=== PATIENT | female | born 1950 | race Caucasian/White ===

== ENCOUNTER → 2017-10-22 | Outpatient (CLI) | payer OTHER | LOC: FIMAGING 07:46 | PROVIDERS: ATTEND Radiology Diagnostic Radiology | DX: I83.812 Varicose veins of left lower extremity with pain (principal) ==

== ENCOUNTER 2017-11-13 07:27 | Day surgery (SDC) | payer OTHER ==
[~2017-11-13 07:27] MED LIST: FLUMAZENIL 0.5 MG/5 ML MDV IVP PRN; MIDAZOLAM 2 MG/2 ML VIAL IVP PRN; NALOXONE HCL 0.4 MG/ML INJ IVP PRN; NS 1,000 ML IV ONE; ONDANSETRON 4 MG/2 ML VIAL IVP ONE; ceFAZolin 2 GM/DEXTROSE 100 ML IV ONE; fentaNYL 100 MCG/2 ML INJ IVP PRN
[2017-11-13] MEDS ORDERED: LIDOCAINE 1% 300 MG/30 ML SDV ONE (07:42)
[2017-11-13] MEDS ORDERED: SODIUM TETRADECYL SULFATE 3% 2 ML VIAL IV ONE (07:43)
[2017-11-13] MEDS ORDERED: LIDO/EPI 1% **for epidural** 30 ML SDV ONE ×2 (07:43→07:44)
--- NOTE | 2017-11-13 09:38 | PDGENHP ---
History & Physical Chief Complaint: LLE VARICOSE VEINS Pertinent Past, Social, Family History: PAIN AND SWELLING Relevant Physical Exam: ROPEY VARICOSE VEINS POSTERIOR LT CALF Cardiorespiratory Assessment: RRR, CTA
--- NOTE | 2017-11-13 09:38 | PDPROPOC ---
Sedation Plan of Care Sedation Plan of Care: vital signs stable, mental status noted, patient educated of risks, benefits, alternatives, patient can tolerate sedation ASA Classification: ASA 2 Planned drugs: fentanyl, midazolam Mallampati Score: Class 2 Mallampati Reference Image: Patient passed 3-3-2 rule?: Yes
[2017-11-13] MEDS ORDERED: IBUPROFEN 200 MG TAB PO ONE (10:52)
[2017-11-13] MEDS ORDERED: ONDANSETRON DISINTEGRATING 4 MG TAB PO PRN (10:52)
[2017-11-13] MEDS ORDERED: HYDROCODONE/APAP 5/325 TAB PO PRN (10:52)
[2017-11-13] MEDS ORDERED: ONDANSETRON 4 MG/2 ML VIAL IVP PRN (10:52)
--- NOTE | 2017-11-13 10:55 | PDRADPN ---
Radiology Procedure Note Date of Procedure: 11/13/17 Radiologist: Nery Barraza Anesthesia: IV Sedation Pre-op Diagnosis: LLE VARICOSE VEINS Post-op Diagnosis: SAME Indication: LLE SWELLING AND PAIN Procedure: LSV LASER, PHLEBECTOMY, SCLEROTHERAPY Finding(s): SEE REPORT Inf/Abcess present in the surg proc area at time of surgery?: No
[2017-11-13] MEDS ORDERED: NS 1,000 ML IV SCH (11:00)
[2017-11-13 13:45] VITALS: BP 118/81
[2017-11-13] MEDS ORDERED: ONDANSETRON DISINTEGRATING 4 MG TAB ONE (14:17)
== END 2017-11-13 14:21 | disposition home or self-care (01) ==
LOC: FIMAGING 07:27
PROVIDERS: ATTEND Radiology Diagnostic Radiology
DX: I83.812 Varicose veins of left lower extremity with pain (principal)
CPT/HCPCS: J0690; J2250; J2310; J2405; J3010